=== PATIENT | female | born 1950 | race African-American/Black ===

== ENCOUNTER 2020-03-25 20:59 | Observation (INO) | payer MEDICARE, MEDICAID ==
[~2020-03-25 20:59] MED LIST: Iopamidol 370 76% 100 ML VIAL ONE
[2020-03-25] MEDS ORDERED: Dexamethasone 10 MG/ML VIAL ONE (21:45)
[2020-03-25 22:06] LABS: Actual Bicarbonate (HCO3a) 14.3 mEq/L (22-28); Analyzer IN Cardio ER; CO2 Tension 26.8 mmHg (35.0-45.0); Calcium, Ionized (arterial) 1.19 mmol/L (1.12-1.30); Carboxyhemoglobin (COHb) 0.3 gm% (0.0-3.0); Hemoglobin (Hb) 9.9 g/dL (12.0-16.0); O2 Tension (PaO2), arterial 93.7 mmHg (> 70.0); Potassium - ABG Lab 3.44 mmol/L (3.70-5.30); pH, Arterial 7.35 (7.35-7.45)
[2020-03-25 22:12] LABS: Puncture Site LBA
[2020-03-25 22:26] LABS: SARS-CoV-2 NAA Rapid Test DETECTED (NotDetected)
--- NOTE | 2020-03-25 23:13 | CT ---
Exam: CT angiogram of the chest HISTORY: Dyspnea. Chest discomfort. Weakness. Possible COVID. COMPARISON: None TECHNIQUE: CT angiogram of the chest is performed in the axial plane. Three-dimensional reformatted i mages are submitted for interpretation FINDINGS: Mediastinum: No mass, lymphadenopathy or hematoma. Axilla: Upper normal bilateral axillary lymph nodes. Mild associated adjacent fat stranding. Left axi llary lymph node measures 1.2 x 0.8 cm. HEART: Normal size. No significant pericardial fluid. There is coronary disease. Aorta: No aneurysm or dissection Upper solid abdominal viscera: Atrophy of the pancreas with multiple calcifications. Correlate for pa st medical history of pancreatitis/chronic pancreatitis. Currently no active inflammatory change Trachea and central bronchi: Patent Pleural spaces: No effusion Lung parenchyma: Peripheral groundglass opacities, worrisome for atypical viral pneumonia such as COV ID Pneumothorax: None Osseous structures: No lytic or blastic lesions Pulmonary arteries: Adequate contrast opacification pulmonary arterial system to the level of segment al arteries. No filling defect to suggest pulmonary embolism IMPRESSION: 1. No evidence of pulmonary artery embolism to the level segmental arteries 2. Peripheral groundglass opacities. Atypical viral pneumonia, such as COVID should be considered. 2. Bilateral upper normal axillary lymph nodes with associated edema. Correlate for reactive lymph no shakila
[2020-03-26] MEDS ORDERED: Acetaminophen 500 MG TAB PO PRN (00:32)
[2020-03-26] MEDS ORDERED: Dextrose 50% Abboject 50 ML SYRINGE SLOW IVP PRN (00:32)
[2020-03-26] MEDS ORDERED: Dextrose 5% in Water 1,000 ML IV PRN (00:32)
[2020-03-26] MEDS ORDERED: Ondansetron ODT 4 MG TAB PO PRN (00:32)
[2020-03-26] MEDS ORDERED: HumaLOG 300 UNITS/3 ML VIAL SC PRN ×2 (00:32)
[2020-03-26] MEDS ORDERED: hydrOXYzine 10 MG/5 ML UDCUP PO PRN (00:43)
[2020-03-26] MEDS ORDERED: traMADol HCl 50 MG TAB PO PRN (00:43)
--- NOTE | 2020-03-26 00:56 | PDOC.FPRHP ---
- History of Present Illness Chief Complaint: sneezing, wanted COVID testing History of Present Illness: 69YOF with a PMH notable for HTN, CKDIII & IDDMII who presented as a transfer from the [place] ER after presenting there to get swabbed for COVID-19. Per the patient she began sneezing a few days ago and go in an argument with her family about whether or not she should get tested. She then decided to go to the [facility] tonight per her daughter's request to get tested as she may have also had possible exposure to a COVID positive family member recently. On presentation to the [facility] she was reportedly febrile at 100.7F and tachycardic in the 120s. She was therefore given 1g of tylenol & 2L of IVFs after initial bloodwork and a CXR was obtained, all of which were WNLs or at her baseline range. She was then transferred to [facility] ER for COVID-19 testing and further workup. On arrival to [facility] she was still slightly tachycardic but this had resolved by the time of my exam. The patient endorsed sneezing for the last several days & an episode of nausea earlier today but denied any chest pain, SOB, cough, V/D, nasal congestion, sore throat or fever/ chills. ED Course: See HPI. - Allergies/Adverse Reactions Allergies Allergy/AdvReac Type Severity Reaction Status Date / Time No Known Allergies Allergy Verified 03/26/20 03:29 - Home Medications Medication Instructions Recorded Confirmed Type Aspirin [Ecotrin Low Strength] 81 mg PO DAILY 03/26/20 03/26/20 History Ferrous Sulfate 325 mg PO DAILY 03/26/20 03/26/20 History Hydrochlorothiazide 25 mg PO DAILY 03/26/20 03/26/20 History Insulin Glargine [Lantus Vial] 15 units SC QAM vial 03/26/20 Rx Insulin Glargine,Hum.Rec.Anlog 15 units SC QAM #0 03/26/20 03/26/20 Rx [Lantus Solostar] Losartan Potassium 100 mg PO DAILY 03/26/20 03/26/20 History Pantoprazole [Protonix] 40 mg PO DAILY 03/26/20 03/26/20 History hydrOXYzine HCl [Hydroxyzine HCl] 25 mg PO PRN PRN 03/26/20 03/26/20 History - History PMHx: IDDMII, HTN, PVD, CAD, CKDIII, OA PSHx: cholecystectomy FHx: HTN in most family members Social: Lives in [place] with her daughter. No TAD. - Review of Systems General: denies: fever/chills, weight/appetite/sleep changes Eyes: denies: eye pain, vision changes ENT: reports: other (no sore throat but + sneezing). denies: nasal congestion Respiratory: denies: cough, shortness of breath Cardiovascular: denies: chest pain, palpitation, edema Gastrointestinal: reports: nausea. denies: vomiting, diarrhea, abdominal pain Genitourinary: denies: dysuria Skin: denies: rashes, lesions Musculoskeletal: reports: arthritis/arthralgias. denies: pain, tenderness Neurological: denies: numbness, weakness Psychological: denies: anxiety, depression - Vital signs BP: 157/90 HR: 94 RR: 18 Tmax: 100.7F Pox: 100% on RA Wt: 53.252 kg - Physical Exam Constitutional: NAD, awake, alert and oriented, well developed HEENT: normocephalic and atraumatic, conjunctiva clear, grossly normal vision Neck: supple, FROM Heart: RRR, normal S1/S2, no murmurs/rubs/gallops, no edema Lungs: CTAB, no respiratory distress, good air movement, no rales/rhonchi, no wheezing, no retractions Abdomen: soft, non-tender, bowel sounds present Musculoskeletal: normal structure, ROM grossly normal Neurological: no focal deficit, CN II-XII intact (grossly) Skin: no rash/lesions, good turgor Heme/Lymphatic: no unusual bruising or bleeding, no purpura, no petechia Psychiatric: normal mood and affect, good judgment and insight, intact recent and remote memory FMR H&P: Results - Labs Result Diagrams: 03/26/20 04:28 03/26/20 04:28 Lab results: ABG pH 7.35 (7.35-7.45) 03/25/20 22:01 ABG pCO2 26.8 mmHg (35.0-45.0) L 03/25/20 22:01 ABG pO2 93.7 mmHg (> 70.0) H 03/25/20 22:01 Laboratory Tests 03/25/20 03/25/20 03/25/20 15:10 15:10 15:10 Hgb Hct Bicarbonate Actual ABG pH ABG pCO2 ABG pO2 Chloride Carbon Dioxide BUN Creatinine Estimated GFR (MDRD) Glucose AST 28 ALT 23 Alkaline Phosphatase 99 Troponin I 0.012 B-Natriuretic Peptide 29.7 SARS-CoV-2 Rap RNA(RT-PCR) 03/25/20 03/25/20 03/25/20 15:10 18:49 21:31 Hgb 8.5 L Hct 27.7 L Bicarbonate Actual ABG pH ABG pCO2 ABG pO2 Chloride 114 H Carbon Dioxide 14 L BUN 21 H Creatinine 1.49 H Estimated GFR (MDRD) 42 Glucose 170 H AST ALT Alkaline Phosphatase Troponin I B-Natriuretic Peptide SARS-CoV-2 Rap RNA(RT-PCR) DETECTED A* 03/25/20 22:01 Hgb Hct Bicarbonate Actual 14.3 L ABG pH 7.35 ABG pCO2 26.8 L ABG pO2 93.7 H Chloride Carbon Dioxide BUN Creatinine Estimated GFR (MDRD) Glucose AST ALT Alkaline Phosphatase Troponin I B-Natriuretic Peptide SARS-CoV-2 Rap RNA(RT-PCR) - EKG Interpretation EKG: Sinus tach @ 128 w/ L atrial enlargement & septal lateral minimal ST depression - Radiology Interpretation CT scan - chest Status: report reviewed by me (COVID PNA, no PE) Chest x-ray Status: image reviewed by me, report reviewed by me (NAF) FMR H&P: A/P - Problem List (1) Pneumonia due to COVID-19 virus Status: Acute Priority: High Code(s): U07.1 - COVID-19; J12.89 - OTHER VIRAL PNEUMONIA (2) Iron deficiency anemia Status: Chronic Code(s): D50.9 - IRON DEFICIENCY ANEMIA, UNSPECIFIED Qualifiers: Iron deficiency anemia type: unspecified iron deficiency Qualified Code(s) : D50.9 - Iron deficiency anemia, unspecified (3) HTN (hypertension) Status: Chronic Code(s): I10 - ESSENTIAL (PRIMARY) HYPERTENSION Qualifiers: Hypertension type: essential hypertension Qualified Code(s): I10 - Essential (primary) hypertension (4) CKD (chronic kidney disease) stage 3, GFR 30-59 ml/min Status: Chronic Code(s): N18.3 - CHRONIC KIDNEY DISEASE, STAGE 3 (MODERATE) (5) PVD (peripheral vascular disease) Status: Chronic Code(s): I73.9 - PERIPHERAL VASCULAR DISEASE, UNSPECIFIED (6) CAD (coronary artery disease) Status: Chronic Code(s): I25.10 - ATHSCL HEART DISEASE OF [place] CORONARY ARTERY W/O ANG PCTRS (7) Osteoarthritis Status: Chronic Code(s): M19.90 - UNSPECIFIED OSTEOARTHRITIS, UNSPECIFIED SITE Qualifiers: Osteoarthritis location: unspecified site (8) Type 2 diabetes mellitus Status: Chronic Qualifiers: Diabetes mellitus retirement insulin use: with retirement use Diabetes mellitus complication status: with kidney complications Diabetes mellitus complication detail: with chronic kidney disease Chronic kidney disease stage : stage 3 (moderate) Qualified Code(s): E11.22 - Type 2 diabetes mellitus with diabetic chronic kidney disease; N18.3 - Chronic kidney disease, stage 3 ( moderate); Z79.4 - terminal gauger (current) use of insulin - Plan COVID-19 PNA: - + swab done in ED & CTA chest was notable for suspected COVID-19 PNA but no PE. On exam the patient's vitals were WNLs & she was satting 100% on RA. Her lungs were CTA and she was in NAD. However, given her age and comorbidities, will admit to the COVID-19 unit for close monitoring overnight. - Will be to obtain baseline COVID-19 labs & start lovenox for VTE PPX & PO dexamethasone in the AM. - Will have PRN O2 supplementation should she become hypoxic & PRN tylenol for fever. HTN - Home meds. CAD & PVD - Home meds. CKDIII - Labs show patient's renal fxn in baseline range. Will renally dose meds PRN. IDDMII - Will resume home meds in AM & get ACHS accuchecks w/ mild SSI. hypoglycemia protocol in place as well. OA - Home tramadol PRN for pain control. Dispo: Will admit to COVID unit for close monitoring overnight with possible d/ c home tomorrow if still stable in RA. ABx: None IVFs: SL VTE PPX: Lovenox GI PPX: None CODE STATUS: FULL CODE PCP: Chen BLAKELY H&P: Upper Level - Plan Date/Time: 03/26/20 0056 I, [], have evaluated this patient and agree with findings/plan as outlined by general internal medicine doctor resident. Pertinent changes/additions are listed here. Addendum - Attending - Attending Attestation Date/Time: 03/25/20 1539 I personally evaluated the patient and discussed the management with Dr. Peters I agree with the History, Examination, Assessment and Plan documented above with any addition or exceptions noted below. 69 yo female presents to outside ER for evaluation for possible COVID19 due to possible exposure. Patient denies significant symptoms such as cough, SOB, increased RR, fevers, chills, fatigue, and GI symptoms. Patient does report sneezing. Found to be COVID positive. Transferred for overnight obs. Ground glass on imaging. 100% on RA. No tachypnea. Afebrile at this time. Tachycardia resolved with IVFs. - Ovs overnight. Symptomatic treatment only. Likely d/c in AM. Quarintine at home. - Chronic conditions: Adjust home meds as needed. - ppx: Lovenox Shaye
[2020-03-26 03:40] VITALS: BMI 20.1
[2020-03-26] MEDS ORDERED: Lactated Ringer's 1,000 ML IV SCH (03:45)
[2020-03-26 04:50] LABS: #Lymphocytes 0.7 thou/uL (1.20-3.40); #Monocytes 0.1 thou/uL (0.11-0.59); %Basophils 0.1 % (0.0-1.0); %Eosinophils 0.4 % (0.0-10.0); %Lymphocytes 14.4 % (21.0-51.0); %Monocytes 2.3 % (0.0-10.0); %Neutrophils 82.8 % (42.0-75.0); Hemoglobin 8.5 g/dL (12.0-16.0); Mean Corpuscular Hemoglobin 28.8 pg (27.0-31.0); Mean Corpuscular Volume 90.1 fL (78.0-98.0); Mean Platelet Volume 9.7 fL (7.4-10.4); Platelet Count 151 thou/uL (130-400); RBC Distribution Width 11.2 % (11.5-14.5); Red Blood Cell (RBC) Count 2.95 mill/uL (4.20-5.40); White Blood Cell (WBC) Count 4.8 thou/uL (4.8-10.8)
[2020-03-26 04:58] LABS: D-Dimer Test 0.89 *mcg/mL (0.27-0.43)
[2020-03-26 05:16] LABS: ALT (SGPT) 18 U/L (8-55); AST (SGOT) 25 U/L (5-34); Albumin 3.5 g/dL (3.4-4.8); Alkaline Phosphatase 91 U/L (40-110); Anion Gap 13 mmol/L (10-20); BUN (Urea Nitrogen) 20 mg/dL (9.8-20.1); Bilirubin, Total 0.6 mg/dL (0.2-1.2); Calc. Creatinine Clearance 32 mL/min (70-130); Calcium 8.2 mg/dL (7.8-10.44); Carbon Dioxide 14 mmol/L (23-31); Chloride 114 mmol/L (98-107); Estimated GFR-MDRD 45; Globulin 3.7 g/dL (2.4-3.5); Glucose 325 mg/dL (80-115); Potassium 3.4 mmol/L (3.5-5.1); Protein, Total 7.2 g/dL (6.0-8.3); Sodium 138 mmol/L (136-145)
--- NOTE | 2020-03-26 06:20 | PDOC.FM ---
- Subjective Subjective: no acute overnight events no O2 requirement overnight 99-100% o2 sat on RA. With respiratory rate of 18. Pt states she feels great and denies cough, sob or chest pain. - Objective MAR Reviewed: Yes Vital Signs & Weight: Vital Signs (12 hours) Temp Pulse Resp BP Pulse Ox 03/26/20 04:00 97.8 F 86 18 158/80 H 99 03/26/20 01:10 98.1 F 90 18 149/70 H 100 Weight Weight 53.252 kg Result Diagrams: 03/26/20 04:28 03/26/20 04:28 Phys Exam - Physical Examination Constitutional: NAD HEENT: PERRLA, moist MMs, sclera anicteric Neck: no JVD, supple, full ROM Respiratory: no wheezing, no rales, no rhonchi, clear to auscultation bilateral Cardiovascular: RRR, no significant murmur Gastrointestinal: soft, non-tender Musculoskeletal: no edema, pulses present Neurological: non-focal, normal sensation, moves all 4 limbs Psychiatric: normal affect, A&O x 3 Skin: no rash, normal turgor Dx/Plan (1) Pneumonia due to COVID-19 virus Code(s): U07.1 - COVID-19; J12.89 - OTHER VIRAL PNEUMONIA Status: Acute (2) CAD (coronary artery disease) Code(s): I25.10 - ATHSCL HEART DISEASE OF [place] CORONARY ARTERY W/O ANG PCTRS Status: Chronic (3) CKD (chronic kidney disease) stage 3, GFR 30-59 ml/min Code(s): N18.3 - CHRONIC KIDNEY DISEASE, STAGE 3 (MODERATE) Status: Chronic (4) HTN (hypertension) Code(s): I10 - ESSENTIAL (PRIMARY) HYPERTENSION Status: Chronic Qualifiers: Hypertension type: essential hypertension Qualified Code(s): I10 - Essential (primary) hypertension (5) Iron deficiency anemia Code(s): D50.9 - IRON DEFICIENCY ANEMIA, UNSPECIFIED Status: Chronic Qualifiers: Iron deficiency anemia type: unspecified iron deficiency Qualified Code(s) : D50.9 - Iron deficiency anemia, unspecified (6) Type 2 diabetes mellitus Status: Chronic Qualifiers: Diabetes mellitus tank terminal gauger insulin use: with shelter use Diabetes mellitus complication status: with kidney complications Diabetes mellitus complication detail: with chronic kidney disease Chronic kidney disease stage : stage 3 (moderate) Qualified Code(s): E11.22 - Type 2 diabetes mellitus with diabetic chronic kidney disease; N18.3 - Chronic kidney disease, stage 3 ( moderate); Z79.4 - group home (current) use of insulin - Plan Plan: COVID-19 PNA: - + swab done in ED & CTA chest was notable for suspected COVID-19 PNA but no PE. On exam the patient's vitals were WNLs & she was satting 100% on RA. Her lungs were CTA and she was in NAD. However, given her age and comorbidities, will admit to the COVID-19 unit for close monitoring overnight. - Will be to obtain baseline COVID-19 labs & start lovenox for VTE PPX & PO dexamethasone in the AM. - Will have PRN O2 supplementation should she become hypoxic & PRN tylenol for fever. HTN - Home meds. CAD & PVD - Home meds. CKDIII - Labs show patient's renal fxn in baseline range. Will renally dose meds PRN. IDDMII - Will resume home meds in AM & get ACHS accuchecks w/ mild SSI. hypoglycemia protocol in place as well. OA - Home tramadol PRN for pain control. Dispo: admitted to COVID unit for close monitoring overnight and plan d/c home today as she is stable on RA. ABx: None IVFs: SL VTE PPX: Lovenox GI PPX: None CODE STATUS: FULL CODE PCP: Chen Addendum - Attending - Attending Attestation Date/Time: 03/26/20 5299 I personally evaluated the patient and discussed the management with Dr. Lazaro. I agree with the History, Examination, Assessment and Plan documented above with any addition or exceptions noted below. Patient with covid-19 pneumonia. The patient is satting normally on room air. She has no shortness of breath and is sitting up eating breakfast. Will be increasing insulin dosing. Pt is currently stable to discharge home. Gave precautions on quarantining and returning if symptoms worsen and pt voiced understanding.
[2020-03-26] MEDS ORDERED: Potassium Chloride 20 MEQ TAB PO SCH (06:30)
[2020-03-26] MEDS ORDERED: Ferrous Sulfate 325 MG TAB PO SCH (08:00)
[2020-03-26] MEDS ORDERED: Cholecalciferol 1,000 UNITS (25 MCG) TAB PO SCH (09:00)
[2020-03-26] MEDS ORDERED: Enoxaparin Sodium 40 MG/0.4 ML SYRINGE SC SCH (09:00)
[2020-03-26] MEDS ORDERED: Insulin Glargine 15 UNITS in Pre-Filled Syringe 1 EACH SC SCH (09:00)
[2020-03-26] MEDS ORDERED: Hydrochlorothiazide 25 MG TAB PO SCH (09:00)
[2020-03-26] MEDS ORDERED: Losartan 25 MG TAB PO SCH (09:00)
[2020-03-26] MEDS ORDERED: Insulin Glargine 12 UNITS in Pre-Filled Syringe 1 EACH SC SCH (09:00)
[2020-03-26 12:26] VITALS: BP 175/81; TEMP 97.7
--- NOTE | 2020-03-27 09:26 | DIS ---
DATE OF ADMISSION: 03/26/2020 DATE OF DISCHARGE: 03/26/2020 RESIDENT: Constance Lazaro DO ADMITTING ATTENDING: Dr. Jacobs DISCHARGE ATTENDING: Milly Siddiqui MD. CONSULTS: None. PROCEDURES: Chest thorax CTA which showed no pulmonary embolism. Did however show ground-glass opacities in the periphery of the lungs. ABG; pH 7.35, O2 of 93, CO2 of 26.8, bicarb 14. DIAGNOSES: 1. COVID-19 pneumonia. 2. Hypertension. 3. Coronary artery disease and peripheral vascular disease. 4. Chronic kidney disease stage 3. 5. Insulin-dependent diabetes mellitus type 2. 6. Osteoarthritis. DISCHARGE MEDICATIONS: Continue home medications of; 1. Aspirin 81 mg p.o. daily. 2. Ferrous sulfate 325 mg p.o. daily. 3. Hydrochlorothiazide 25 mg p.o. daily. 4. Hydroxyzine 25 mg p.o. p.r.n. 5. Losartan 100 mg p.o. daily. 6. Protonix 40 mg p.o. daily. Addition of Lantus 15 units subcutaneous every morning. Discontinue medication Lantus 12 units subcutaneous every morning as this was increased to the above dosing of 15 units every morning as the patient was hyperglycemic and last chart review of A1c of 8.0 in January. HISTORY OF PRESENT ILLNESS/HOSPITAL COURSE: Ms. Miller is a 69-year-old female, with a past medical history of insulin-dependent diabetes, CKD stage 3, iron deficiency anemia, and hypertension, who was admitted to the hospital due to COVID-19 infection causing ground-glass opacity or bilateral pneumonia consistent with COVID-19 infection. She did not show any signs of hypoxia or respiratory distress. She did not require any oxygen while admission and had normal vital signs exhibited throughout her stay. The patient's blood sugars were elevated during her hospital stay, and her Lantus was increased from 12 to 15 units q.a.m. This was discussed with her PCP, Dr. Siddiqui, who agreed with this change. The last A1c was in January of 2020 and was seen to be 8.0. She had previously been on only 6 units q.a.m. 3 months before this when her A1c was greater than 9, and she was increased to 12 units a day and still at 8. The patient denied any shortness of breath or even cough. She said that she felt very good. DISPOSITION: Stable upon discharge. DISCHARGE INSTRUCTIONS: Location: To home. Diet: Heart healthy and consistent carb. Activity: As tolerated and to socially distance and quarantine herself for 10 days from presenting symptom or from 3 days after fever. Patient understands this. To follow up with Dr. Siddiqui, primary care physician in 10 days to 2 weeks. The patient was instructed to call her PCP, Dr. Siddiqui if she experiences any shortness of breath or worsening respiratory status. She understands these instructions. Job ID: [id number] MTDD
== END 2020-03-26 14:10 | disposition home or self-care (01) ==
LOC: ERS 20:59 → 2SE 03-26 00:14
PROVIDERS: ADMIT Student in an Organized Health Care Education/Training Program; ATTEND Student in an Organized Health Care Education/Training Program
DX: U07.1 COVID-19 (principal); J12.89 Other viral pneumonia; I12.9 Hypertensive chronic kidney disease with stage 1 through stage 4 chronic kidney disease, or unspecified chronic kidney disease; E11.22 Type 2 diabetes mellitus with diabetic chronic kidney disease; N18.3 Chronic kidney disease, stage 3 (moderate); I25.10 Atherosclerotic heart disease of native coronary artery without angina pectoris; D50.9 Iron deficiency anemia, unspecified; I73.9 Peripheral vascular disease, unspecified; M19.90 Unspecified osteoarthritis, unspecified site; Z79.4 Long term (current) use of insulin; Z79.82 Long term (current) use of aspirin; Z79.899 Other long term (current) drug therapy
CPT/HCPCS: 36600; 71275; 80053; 82728; 82805; 82962; 83615; 85025; 85379; 85384; 86140; U0002; 36416; 96372; 96374; G0378; J1100; J1650; J1815; Q9967

== ENCOUNTER 2024-01-26 18:13 | Emergency (ER) | payer OTHER, MEDICAID ==
[2024-01-26] MEDS ORDERED: traMADol HCl 50 MG TAB ONE (18:44)
[2024-01-26 19:58] LABS: #Basophils 0.06 10x3/uL (0.0-0.2); %Basophils 0.5 % (0.0-1.0); %Eosinophils 3.6 % (0.0-10.0); %Lymphocytes 17.1 % (21.0-51.0); %Monocytes 7.8 % (0.0-10.0); %Neutrophils 70.6 % (42.0-75.0); Hematocrit 32.9 % (36.0-47.0); Mean Corpuscular HGB CONC 33.4 g/dL (32.0-36.0); Mean Corpuscular Hemoglobin 27.6 pg (27.0-31.0); Mean Corpuscular Volume 82.7 fL (78.0-98.0); Mean Platelet Volume 11.3 fL (7.4-10.4); Platelet Count 188 10x3/uL (130-400); RBC Distribution Width 13.7 % (11.5-14.5); Red Blood Cell (RBC) Count 3.98 mill/uL (4.20-5.40)
[2024-01-26 20:15] LABS: ALT (SGPT) 33 U/L (8-55); AST (SGOT) 33 U/L (5-34); Albumin 3.3 g/dL (3.4-4.8); Alkaline Phosphatase 139 U/L (40-110); Anion Gap 16 mmol/L (10-20); BUN (Urea Nitrogen) 25 mg/dL (9.8-20.1); Bilirubin, Total 1.1 mg/dL (0.2-1.2); Calc. Creatinine Clearance 0 mL/min (70-130); Calcium 9.6 mg/dL (7.8-10.44); Carbon Dioxide 15 mmol/L (23-31); Chloride 112 mmol/L (98-107); Estimated GFR 34; Globulin 4.9 g/dL (2.4-3.5); Glucose 109 mg/dL (83-110); Potassium 3.5 mmol/L (3.5-5.1); Protein, Total 8.2 g/dL (5.8-8.1); Sodium 139 mmol/L (136-145)
[2024-01-26 20:20] LABS: Troponin I Less than 0.010 ng/mL (< 0.028)
== END 2024-01-26 23:06 | disposition home or self-care (01) ==
LOC: ERS 18:13
DX: M25.512 Pain in left shoulder (principal); M54.9 Dorsalgia, unspecified; R07.9 Chest pain, unspecified; G89.29 Other chronic pain; I12.9 Hypertensive chronic kidney disease with stage 1 through stage 4 chronic kidney disease, or unspecified chronic kidney disease; E11.22 Type 2 diabetes mellitus with diabetic chronic kidney disease; N18.30 Chronic kidney disease, stage 3 unspecified; E78.5 Hyperlipidemia, unspecified; K21.9 Gastro-esophageal reflux disease without esophagitis; D50.9 Iron deficiency anemia, unspecified; R54 Age-related physical debility; Z55.6 Problems related to health literacy; Z79.4 Long term (current) use of insulin; Z87.891 Personal history of nicotine dependence; Z79.82 Long term (current) use of aspirin; Z79.899 Other long term (current) drug therapy
CPT/HCPCS: 36415; 71045; 71275; 80053; 84484; 85025; 85379; 93005